=== PATIENT | male | born 1975 | race Two or more races ===

== ENCOUNTER 2022-02-24 08:39 | Emergency (ER) | payer OTHER ==
[~2022-02-24] VITALS: Ht 185.4 cm; Wt 124.7 kg
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
--- NOTE | 2022-02-24 09:00 | NUR ---
CERVICAL COLLAR APPLIED TO PT
[2022-02-24] MEDS ORDERED: KETOROLAC TROMETHAMINE INJ 60 MG/2 ML VIAL IM ONE (09:30)
[2022-02-24] MEDS ORDERED: CYCLOBENZAPRINE 10 MG TABLET PO ONE (09:30)
[2022-02-24] MEDS ORDERED: LIDOCAINE 5% (PATCH) 1 EA PATCH TP SCH (09:30)
[2022-02-24] MEDS ORDERED: LIDOCAINE 5% (PATCH) 1 EA PATCH TP ONE (09:32)
[2022-02-24] MEDS ORDERED: CYCLOBENZAPRINE 10 MG TABLET ONE (09:32)
[2022-02-24] MEDS ORDERED: KETOROLAC TROMETHAMINE INJ 30 MG/ML VIAL ONE (09:32)
--- NOTE | 2022-02-24 09:40 | NUR ---
PT TAKEN TO RADIOLOGY FOR CT
--- NOTE | 2022-02-24 12:03 | NUR ---
Patient discharged to home in stable condition. Written and verbal after care instructions given. Patient verbalizes understanding of instruction.
[2022-02-24 12:06] VITALS: BP 152/100
== END 2022-02-24 12:06 | disposition home or self-care (01) ==
LOC: ER 08:46
DX: M54.50 Low back pain, unspecified (principal); M54.2 Cervicalgia; I10 Essential (primary) hypertension; E11.9 Type 2 diabetes mellitus without complications; V49.49XA Driver injured in collision with other motor vehicles in traffic accident, initial encounter; Y93.89 Activity, other specified; Y92.413 State road as the place of occurrence of the external cause; Y99.8 Other external cause status
CPT/HCPCS: 99284; 72125; 96372; 72100; J1885; L0172